=== PATIENT | female | born 1995 | race African-American/Black ===

== ENCOUNTER 2017-03-04 02:19 | Emergency (ER) | payer OTHER ==
[~2017-03-04] VITALS: Ht 154.9 cm; Wt 68.0 kg
--- NOTE | ~2017-03-04 | CR63 ---
[facility]. [facility] A Service of [facility] & [facility] RADIOLOGY TEXT RESULTS PATIENT: WENDY TURCIOS LOCATION: SED : [birth year] UNIT #: [id number] AGE: [address]: Venancio Devine MD SEX: F ORDER DR: [id number] [place] [id number] E MR#: [id number] Acc #: [id number] NAME: WENDY TURCIOS : 1995 SEX: F STUDY DATE/TIME: 03/04/2017 4:08 UNIT: SED ROOM: STUDY DESCRIPTION: CR Chest 2 View Attending Physician: Venancio Devine M.D. Ordering Physician: Venancio Devine M.D. MEDICAL IMAGING REPORT This report is preliminary unless electronic signature is present. EXAM Chest x-ray 03/04/2017 HISTORY 21-year-old female in the ED with chest pain, shortness of air and dizziness beginning tonight. TECHNIQUE PA and lateral upright chest series. FINDINGS The examination is negative. Heart size and pulmonary vascularity are normal. The lungs are expanded and clear. No visible pulmonary infiltrate or pleural effusion. IMPRESSION Negative chest. Dictated by... Rodrigo Meléndez M.D. THIS IS AN ELECTRONICALLY VERIFIED REPORT Rodrigo Meléndez M.D. at 03/04/2017 10:03 PM CHRIS/reid TD: 03/04/2017 09:23 JOB #: [id number] MEDICAL IMAGING REPORT Page 1 of 1
--- NOTE | ~2017-03-04 | EKG ---
PATIENT: WENDY TURCIOS UNIT #: [id number] Ventricular Rate: 59 BPM Atrial Rate: 59 BPM P-R Interval: 162 ms QRS Duration: 76 ms Q-T Interval: 418 ms QTC Calculation(Bezet): 413 ms P [place]: 29 degrees Calculated R [place]: 73 degrees Calculated T [place]: 46 degrees Diagnosis Line: Sinus bradycardia with sinus arrhythmia Diagnosis Line: Otherwise normal ECG Diagnosis Line: No previous ECGs available Diagnosis Line: Confirmed by CARLOS CRUZ MD ([id number]) on Diagnosis Line: 03/04/2017 12:39:39 PM INTERPRETING MD: NANCY DURHAM
[2017-03-04] MEDS ORDERED: NO MEDICATIONS (02:27)
[2017-03-04 03:40] LABS: BASOPHIL% 0.6 % (0-2.5); DIFF IND NO; EOSINOPHIL# 0.1 X10e3 (0-0.7); EOSINOPHIL% 1.9 % (0.0-7.0); HEMATOCRIT 38.7 % (35.0-45.0); HEMOGLOBIN 13.2 gm/dL (12.0-16.0); LYMPHOCYTE# 2.3 X10e3 (1.0-3.5); LYMPHOCYTE% 35.5 % (17.0-45.0); MEAN CELL VOLUME 88.1 FL (83-96); MEAN CORPUSCULAR HGB CONC 34.1 g/dL (30-36); MEAN PLATELET VOLUME 8.4 FL (6.5-11.5); MONOCYTE# 0.6 X10e3 (0-1.0); MONOCYTE% 9.5 % (3.0-12.0); NEUTROPHIL# 3.4 X10e3 (1.5-7.1); NEUTROPHIL% 52.5 % (40-75); PLATELET COUNT 243 X10e3 (140-420); RED BLOOD COUNT 4.39 X10e (3.90-5.30); RED CELL DISTRIBUTION WIDTH 12.5 % (11.0-15.5); WHITE BLOOD COUNT 6.5 X10e3 (4.0-10.5)
[2017-03-04 03:51] LABS: BUN/CREATININE RATIO 18.57; CALCIUM SERUM 9.5 mg/dL (8.4-10.2); CREATININE SERUM 0.7 mg/dL (0.6-1.4); GLOM FILT RATE Estimated 141.5 mL/min (>60); POTASSIUM 3.8 mmol/L (3.5-5.1)
[2017-03-04 03:55] LABS: URINE SOURCE CLEAN CATCH
[2017-03-04 03:58] LABS: URINE APPEARANCE CLEAR; URINE BILIRUBIN NEG (NEG); URINE BLOOD 1+ (NEG); URINE COLOR YELLOW; URINE GLUCOSE NEG (NORM); URINE KETONE NEG (NEG); URINE LEUKOCYTE ESTERASE NEG (NEG); URINE NITRATE NEG (NEG); URINE PROTEIN NEG (NEG); URINE SPECIFIC GRAVITY <=1.005 (1.003-1.035); URINE UROBILINOGEN 0.2 MG/DL (NORM)
[2017-03-04 04:00] LABS: MICRO INDICATED? YES
[2017-03-04 04:01] LABS: URINE WBC 0-2 /[HPF] (0-5)
[2017-03-04 04:02] LABS: CULTURE INDICATED? NO; URINE BACTERIA NEG (NEG); URINE SQUAMOUS EPITHELIAL CELL OCCAS /[HPF]
[2017-03-05 14:28] LABS: POC - CKMB <1.0 ng/mL (0.0-7.9); POC - TROPONIN <0.05 ng/mL (<=0.05)
[2017-03-05 14:30] LABS: POC - CKMB <1.0 ng/mL (0.0-7.9); POC - TROPONIN <0.05 ng/mL (<=0.05)
== END 2017-03-04 04:33 | disposition home or self-care (01) ==
LOC: SED 02:19
PROVIDERS: Emergency Medicine
DX: R51 Headache (principal); F41.9 Anxiety disorder, unspecified; R07.9 Chest pain, unspecified; J45.909 Unspecified asthma, uncomplicated; Z88.8 Allergy status to other drugs, medicaments and biological substances
CPT/HCPCS: 36415; 71020; 80048; 81003; 82553; 84484; 84703; 85025; 93005; 96361; 96374; 99284; J1885

== ENCOUNTER 2017-03-07 16:18 | Emergency (ER) | payer OTHER ==
[~2017-03-07] VITALS: Ht 154.9 cm; Wt 71.7 kg
--- NOTE | ~2017-03-07 | CT71 ---
[facility] A Service [facility] RADIOLOGY TEXT RESULTS PATIENT: WENDY TURCIOS LOCATION: SED : [birth year] UNIT #: [id number] AGE: [address]: Rosa Sanchez MD SEX: F ORDER DR: [id number] [place] [id number] E MR#: [id number] Acc #: [id number] NAME: WENDY TURCIOS : 1995 SEX: F STUDY DATE/TIME: 03/07/2017 21:10 UNIT: SED ROOM: STUDY DESCRIPTION: CT Head Wo Contrast Attending Physician: Rosa Sanchez M.D. Ordering Physician: Rosa Sanchez M.D. MEDICAL IMAGING REPORT This report is preliminary unless electronic signature is present. EXAM CT brain without contrast HISTORY Chronic headache. No injury. TECHNIQUE Axial noncontrast images were obtained from the skull base to the vertex. This CT exam was performed with one or more of the following radiation dose reduction techniques: Automatic exposure control, adjustment of mA and/or kV according to patient size, and iterative reconstruction. FINDINGS Ventricular size and configuration are normal. There is no evidence of acute infarct or hemorrhage. There are no extraaxial fluid collections. No mass lesion or mass effect is seen. There are no skull fractures. IMPRESSION Normal noncontrast head CT. Dictated by... Tyler Velasquez M.D. THIS IS AN ELECTRONICALLY VERIFIED REPORT Tyler Velasquez M.D. at 03/08/2017 10:10 PM DFL/psc TD: 03/08/2017 19:02 JOB #: [id number] [facility] A Service [facility] RADIOLOGY TEXT RESULTS PATIENT: WENDY TURCIOS LOCATION: SED : [birth year] UNIT #: [id number] AGE: [address]: Rosa Sanchez MD SEX: F ORDER DR: MEDICAL IMAGING REPORT Page 1 of 1
[~2017-03-07 16:18] MED LIST: NO MEDICATIONS
[2017-03-07 21:57] LABS: BASOPHIL% 0.5 % (0-2.5); EOSINOPHIL# 0.1 X10e3 (0-0.7); EOSINOPHIL% 2.1 % (0.0-7.0); HEMATOCRIT 36.6 % (35.0-45.0); HEMOGLOBIN 12.4 gm/dL (12.0-16.0); LYMPHOCYTE# 2.3 X10e3 (1.0-3.5); LYMPHOCYTE% 33.1 % (17.0-45.0); MEAN CELL VOLUME 89.5 FL (83-96); MEAN CORPUSCULAR HEMOGLOBIN 30.4 PG (28-34); MEAN PLATELET VOLUME 8.3 FL (6.5-11.5); MONOCYTE# 0.8 X10e3 (0-1.0); MONOCYTE% 10.9 % (3.0-12.0); NEUTROPHIL# 3.7 X10e3 (1.5-7.1); NEUTROPHIL% 53.4 % (40-75); PLATELET COUNT 242 X10e3 (140-420); RED BLOOD COUNT 4.09 X10e (3.90-5.30); RED CELL DISTRIBUTION WIDTH 12.7 % (11.0-15.5); WHITE BLOOD COUNT 6.9 X10e3 (4.0-10.5)
[2017-03-07 21:59] LABS: DIFF IND NO
[2017-03-07 22:19] LABS: ALBUMIN SERUM 5.2 g/dL (3.5-5.0); ALKALINE PHOSPHATASE 53 U/L (32-92); ALT (SGPT) 15 U/L (10-40); AST (SGOT) 16 U/L (10-42); BILIRUBIN, DIRECT <0.1 mg/dL (0.0-0.2); BILIRUBIN,INDIRECT 0.3 mg/dL (0.0-0.9); BILIRUBIN,TOTAL 0.4 mg/dL (0.2-2.0); BLOOD UREA NITROGEN 11 mg/dL (9-23); BUN/CREATININE RATIO 13.75; CALCIUM SERUM 10.2 mg/dL (8.4-10.2); CARBON DIOXIDE 27 mmol/L (22-31); CHLORIDE 103 mmol/L (100-111); CREATININE SERUM 0.8 mg/dL (0.6-1.4); GLOM FILT RATE Estimated 120.5 mL/min (>60); GLUCOSE FASTING 105 mg/dL (70-110); POTASSIUM 3.7 mmol/L (3.5-5.1); PROTEIN TOTAL SERUM 8.9 g/dL (6.0-8.3); SODIUM 139 mmol/L (135-145)
== END 2017-03-07 23:27 | disposition home or self-care (01) ==
LOC: SED 16:18
PROVIDERS: Emergency Medicine
DX: R51 Headache (principal); J45.909 Unspecified asthma, uncomplicated; Z88.8 Allergy status to other drugs, medicaments and biological substances
CPT/HCPCS: 36415; 70450; 80048; 80076; 85025; 96361; 96374; 96375; 99284; J1100; J1200; J1885; J2765

== ENCOUNTER → 2017-04-01 | Outpatient (CLI) | payer OTHER ==
[~2017-04-01] MED LIST changes: +REGLAN10 MG PO; +TOPAMAX25 MG PO
--- NOTE | ~2017-04-01 | MR17 ---
[facility] A Service of [facility] & [facility] RADIOLOGY TEXT RESULTS PATIENT: WENDY TURCIOS LOCATION: [facility] : [birth year] UNIT #: [id number] AGE: [address]: RAE TORRES APRN SEX: F ORDER DR: [id number] [address] [address] [id number] O MR#: [id number] Acc #: [id number] NAME: WENDY TURCIOS. : 1995 SEX: F STUDY DATE/TIME: 04/01/2017 13:22 UNIT: [facility] ROOM: STUDY DESCRIPTION: MR Brain WWo Contrast Attending Physician: Rae Torres Aprn Referring Physician: Rae Torres Aprn Ordering Physician: Rae Torres Aprn Primary Care Physician: Rae Torres Aprn MRI CENTER REPORT This report is preliminary unless electronic signature is present. EXAM MRI of the brain with and without contrast, dated 04/01/2017. COMPARISON CT head without contrast, dated 03/07/2017. HISTORY History of migraines. Patient takes medications for the last 9 years, progressively worsening in the last 6 months. Headaches are mostly in the posterior aspect. Patient also has neck pain with bilateral radiculopathy, worse on the left. FINDINGS Multisequence, multiplanar imaging of the brain was obtained with and without contrast. 15 mL of MultiHance was administered intravenously. No acute stroke, enhancing mass, hydrocephalus or midline shift. Age-appropriate parenchymal volume is seen. Vascular flow voids of the major cerebral arteries and dural venous sinuses are unremarkable. Nasal septum is deviated to the left. Paranasal sinuses, orbits with the ocular structures and mastoids are unremarkable. Thick slices through the sella with the pituitary gland, pineal region and upper cervical spine are within normal limits. Postcontrast sequences do not demonstrate enhancing lesions. IMPRESSION 1. No demonstrable intracranial abnormality. Dictated by... Blanca Ng M.D. THIS IS AN ELECTRONICALLY VERIFIED REPORT [facility] A Service of [facility] & [facility] RADIOLOGY TEXT RESULTS PATIENT: WENDY TURCIOS LOCATION: [facility] : [birth year] UNIT #: [id number] AGE: [address]: RAE TORRES APRN SEX: F ORDER DR: Blanca Ng M.D. at 04/02/2017 6:39 PM CPR/jt TD: 04/02/2017 17:16 JOB #: [id number] MRI CENTER REPORT Page 1 of 1
== END | disposition home or self-care (01) ==
LOC: SMRI 12:21
DX: G43.909 Migraine, unspecified, not intractable, without status migrainosus (principal); H53.9 Unspecified visual disturbance; R20.2 Paresthesia of skin; R53.1 Weakness
CPT/HCPCS: 70553; A9581

== ENCOUNTER 2017-04-06 18:46 | Emergency (ER) | payer OTHER ==
[~2017-04-06] VITALS: Ht 154.9 cm; Wt 73.5 kg
--- NOTE | ~2017-04-06 | CT52 ---
[facility]. [facility] A Service [facility] RADIOLOGY TEXT RESULTS PATIENT: WENDY TURCIOS LOCATION: SED : [birth year] UNIT #: [id number] AGE: [address]: Alison Avila MD SEX: F ORDER DR: [id number] [address] [address] [id number] E MR#: [id number] Acc #: [id number] NAME: WENDY TURCIOS. : 1995 SEX: F STUDY DATE/TIME: 04/06/2017 20:28 UNIT: SED ROOM: STUDY DESCRIPTION: CT Cervical Spine Wo Cont Attending Physician: Alison Avila M.D. Ordering Physician: Alison Avila M.D. Primary Care Physician: Daphne Diaz Aprn MEDICAL IMAGING REPORT This report is preliminary unless electronic signature is present. EXAM CT cervical spine without IV contrast COMPARISON None INDICATIONS 21-year-old female with posterior neck pain intermittently for 2 weeks. Drainage in the throat. TECHNIQUE Axial CT imaging of the cervical spine was performed without IV contrast. Coronal and sagittal reformats were constructed. Lack of IV contrast limits evaluation of adenopathy, vasculature, viscera. This CT exam was performed with one or more of the following radiation dose reduction techniques: automatic exposure control, adjustment of mA and/or kV according to patient size, and iterative reconstruction. FINDINGS No acute findings of pulmonary disease. Airway is widely patent. There is a left sided superior cervical lymph node measuring up to 1.7 cm short axis. On the right, there is a superior cervical lymph node measuring up to 1.9 cm long axis. There is reversal of normal curvature cervical spine, likely positional. There is no subluxation. No evidence of acute fracture or osseous destruction. IMPRESSION 1. No acute fracture or subluxation of the cervical spine. No evidence of osteomyelitis. 2. Mildly enlarged superior cervical lymph nodes bilaterally measuring up to 1.9 cm in long axis. These are likely reactive in the absence of a known malignancy. [facility] A Service of [facility] RADIOLOGY TEXT RESULTS PATIENT: WENDY TURCIOS LOCATION: [facility] : [birth year] UNIT #: [id number] AGE: [address]: Alison Avila MD SEX: F ORDER DR: Dictated by... Salazar Mcdermott M.D. THIS IS AN ELECTRONICALLY VERIFIED REPORT Salazar Mcdermott M.D. at 04/09/2017 1:40 PM BLM/to TD: 04/07/2017 13:36 JOB #: [id number] MEDICAL IMAGING REPORT Page 1 of 1
[~2017-04-06 18:46] MED LIST changes: -REGLAN10 MG PO; -TOPAMAX25 MG PO
[2017-04-06] MEDS ORDERED: TOPAMAX25 MG PO (19:00)
[2017-04-06] MEDS ORDERED: REGLAN10 MG PO (19:00)
[2017-04-06 20:09] LABS: BASOPHIL# 0.1 X10e3 (0-0.3); BASOPHIL% 0.7 % (0-2.5); EOSINOPHIL# 0.1 X10e3 (0-0.7); EOSINOPHIL% 1.8 % (0.0-7.0); HEMATOCRIT 41.2 % (35.0-45.0); LYMPHOCYTE# 2.4 X10e3 (1.0-3.5); LYMPHOCYTE% 31.7 % (17.0-45.0); MEAN CELL VOLUME 89.8 FL (83-96); MEAN CORPUSCULAR HEMOGLOBIN 30.4 PG (28-34); MEAN CORPUSCULAR HGB CONC 33.9 g/dL (30-36); MEAN PLATELET VOLUME 8.1 FL (6.5-11.5); MONOCYTE# 0.7 X10e3 (0-1.0); MONOCYTE% 9.5 % (3.0-12.0); NEUTROPHIL# 4.3 X10e3 (1.5-7.1); NEUTROPHIL% 56.3 % (40-75); PLATELET COUNT 309 X10e3 (140-420); RED BLOOD COUNT 4.59 X10e (3.90-5.30); RED CELL DISTRIBUTION WIDTH 13.1 % (11.0-15.5); WHITE BLOOD COUNT 7.7 X10e3 (4.0-10.5)
[2017-04-06 20:14] LABS: DIFF IND NO
[2017-04-06 20:20] LABS: AMPHETAMINE NEG (NEG); BARBITURATES NEG (NEG); BENZODIAZEPINES NEG (NEG); COCAINE NEG (NEG); MARIJUANA NEG (NEG); OPIATES NEG (NEG); TRICYCLIC ANTIDEPRESSANTS NEG (NEG); U METHADONE NEG (NEG)
[2017-04-06 20:27] LABS: BUN/CREATININE RATIO 21.66; CALCIUM SERUM 9.8 mg/dL (8.4-10.2); CREATININE SERUM 0.6 mg/dL (0.6-1.4); GLOM FILT RATE Estimated 148.9 mL/min (>60); POTASSIUM 3.3 mmol/L (3.5-5.1)
== END 2017-04-06 22:06 | disposition home or self-care (01) ==
LOC: SED 18:46
PROVIDERS: Student in an Organized Health Care Education/Training Program
DX: M54.2 Cervicalgia (principal); G43.709 Chronic migraine without aura, not intractable, without status migrainosus; J45.909 Unspecified asthma, uncomplicated; Z88.8 Allergy status to other drugs, medicaments and biological substances; Z79.899 Other long term (current) drug therapy
CPT/HCPCS: 36415; 72125; 80048; 80307; 84703; 85025; 96361; 96374; 96375; 99284; J1200; J1885; J2405; J3360